=== PATIENT | female | born 1945 | race Caucasian/White ===

== ENCOUNTER 2018-06-05 13:15 | Outpatient (CLI) | payer MEDICARE ==
--- NOTE | 2018-06-05 15:18 | MRI ---
MRI CERVICAL SPINE NONCONTRAST: History: Neck pain without radiculopathy. FINDINGS: Vertebral body height and alignment are maintained. Desiccation of all of the intervertebral discs. B one marrow signal is within normal limits. Motion artifact obscures detail. C2-3: Central canal and neural foramina are patent. C3-4: Mild posterior osteophyte/disc complex. Mild right and moderate left foraminal stenoses. C4-5: Mild posterior osteophyte/disc complex. Circumferential degenerative changes. Moderate stenosis of the central canal. Moderate right and severe left foraminal stenoses. No abnormal signal is appar ent without the spinal cord. C5-6: Very limited due to patient motion. At least mild central canal stenosis. Moderate bilateral fo raminal stenoses. C6-7: Extensive motion artifact. Minimal degenerative retrolisthesis. Posterior osteophyte/disc compl ex. Moderate stenosis of the central canal. Mild to moderate stenosis of the neural foramina. C7-T1: Minimal degenerative spondylolisthesis. Central canal and neural foramina are patent. IMPRESSION: 1. Multilevel degenerative changes throughout the cervical spine, including central canal and foramin al stenoses as detailed above. POS: LEO
== END 2018-06-05 13:16 | disposition home or self-care (01) ==
LOC: SCSMRI 13:15
PROVIDERS: ATTEND Orthopaedic Surgery
DX: M47.892 Other spondylosis, cervical region (principal); M48.02 Spinal stenosis, cervical region; M99.81 Other biomechanical lesions of cervical region
CPT/HCPCS: 72141

== ENCOUNTER 2019-12-01 08:05 | Outpatient (CLI) | payer MEDICARE ==
[2019-12-01 15:33] LABS: #Eosinphils 0.2 thou/uL (0.0-0.7); #Lymphocytes 2.9 thou/uL (1.20-3.40); #Monocytes 0.9 thou/uL (0.11-0.59); #Neutrophils 8.2 thou/uL (1.40-6.50); %Basophils 0.4 % (0.0-1.0); %Eosinophils 1.3 % (0.0-10.0); %Lymphocytes 23.7 % (21.0-51.0); %Monocytes 7.3 % (0.0-10.0); %Neutrophils 67.3 % (42.0-75.0); Hemoglobin 13.8 g/dL (12.0-16.0); Mean Corpuscular HGB CONC 32.6 g/dL (32.0-36.0); Mean Corpuscular Hemoglobin 29.8 pg (27.0-31.0); Mean Corpuscular Volume 91.5 fL (78.0-98.0); Platelet Count 250 thou/uL (130-400); RBC Distribution Width 12.7 % (11.5-14.5); Red Blood Cell (RBC) Count 4.65 mill/uL (4.20-5.40); White Blood Cell (WBC) Count 12.2 thou/uL (4.8-10.8)
[2019-12-01 15:53] LABS: Anion Gap 16 mmol/L (10-20); BUN (Urea Nitrogen) 19 mg/dL (9.8-20.1); Calc. Creatinine Clearance 0 mL/min (70-130); Calcium 10.1 mg/dL (7.8-10.44); Carbon Dioxide 24 mmol/L (23-31); Chloride 102 mmol/L (98-107); Estimated GFR-MDRD 53; Glucose 92 mg/dL (83-110); Potassium 3.7 mmol/L (3.5-5.1); Sodium 138 mmol/L (136-145)
== END 2019-12-01 08:06 | disposition home or self-care (01) ==
LOC: LABBT 08:05
PROVIDERS: ATTEND Orthopaedic Surgery
DX: Z01.818 Encounter for other preprocedural examination (principal); M12.811 Other specific arthropathies, not elsewhere classified, right shoulder
CPT/HCPCS: 80048; 85025; 87081; 93005; 93010

== ENCOUNTER 2019-12-01 14:00 | Inpatient (IN) | payer MEDICARE ==
[2019-12-09] MEDS ORDERED: Vancomycin 1.5 GRAM/300 ML BAG 1.5 GM/300 ML BAG ONE (06:05)
[2019-12-09] MEDS ORDERED: Tranexamic Acid 1,000 MG/10 ML VIAL ONE (06:05)
[2019-12-09] MEDS ORDERED: Sodium Chloride 0.9% 100 ML ONE (06:05)
[2019-12-09] MEDS ORDERED: Fentanyl 100 MCG/2 ML VIAL ONE ×4 (06:46→10:02)
[2019-12-09] MEDS ORDERED: Midazolam HCl 2 mg/2 ml Vial ONE (06:46)
[2019-12-09] MEDS ORDERED: Acetaminophen 325 MG TAB PO PRN ×2 (06:49→07:15)
[2019-12-09] MEDS ORDERED: HYDROcodone/Acetaminophen 10/325 mg Tablet PO PRN ×3 (06:49→07:15)
[2019-12-09] MEDS ORDERED: traMADol HCl 50 MG TAB PO PRN ×4 (06:49→07:15)
[2019-12-09] MEDS ORDERED: Lorazepam 1 MG TAB PO PRN (06:50)
[2019-12-09] MEDS ORDERED: Acetaminophen ER (8hr) 650 MG TAB PO PRN (06:50)
[2019-12-09] MEDS ORDERED: Methocarbamol 500 MG TAB PO PRN (06:50)
[2019-12-09] MEDS ORDERED: Ondansetron PF 4 MG/2 ML Vial IVP PRN (07:15)
[2019-12-09] MEDS ORDERED: Ropivacaine 0.2% 550 ML 550 ML NERVE BLCK SCH (07:15)
[2019-12-09] MEDS ORDERED: Promethazine HCl 25 MG/ML VIAL IM PRN (07:15)
[2019-12-09] MEDS ORDERED: Zolpidem Tartrate 5 MG TAB PO PRN (07:15)
[2019-12-09] MEDS ORDERED: Fentanyl 100 MCG/2 ML VIAL SLOW IVP PRN (07:16)
[2019-12-09] MEDS ORDERED: Polyethylene Glycol OPTH DROP 15 ML BOT EA EYE PRN (07:41)
[2019-12-09] MEDS ORDERED: Ketorolac Tromethamine 30 MG/ML VIAL ONE (09:42)
[2019-12-09 12:56] VITALS: BMI 43.4
[2019-12-09] MEDS: Ketorolac Tromethamine 30 MG/ML VIAL IVP SCH ×2 (13:00→17:45)
[2019-12-09] MEDS: Lactated Ringer's 1,000 ML IV SCH ×2 (13:35→22:47)
[2019-12-09] MEDS: Famotidine 20 MG TAB PO SCH ×2 (13:35→20:06)
[2019-12-09] MEDS: Multivit, Therapeutic 1 TAB PO SCH (13:35)
[2019-12-09] MEDS: Vit A,C & E/Lutein/Minerals Tablet PO SCH ×2 (13:36→20:05)
[2019-12-09] MEDS: CEFAZOLIN 2 GM in Premix Bag 1 BAG IVPB SCH ×2 (14:05→22:47)
[2019-12-09] MEDS ORDERED: Rocuronium Bromide 10 MG/ML (10ML VIAL) ONE (14:45)
[2019-12-09] MEDS ORDERED: PROPOFOL 200 MG/20 ML VIAL ONE (14:45)
[2019-12-09] MEDS ORDERED: Ropivacaine 0.2% HCl/PF (40 MG/20 ML VIAL) ONE (14:45)
[2019-12-09] MEDS ORDERED: Ondansetron PF 4 MG/2 ML Vial ONE (14:45)
[2019-12-09] MEDS ORDERED: Lidocaine 1% PF 5 ML VIAL ONE (14:45)
[2019-12-09] MEDS ORDERED: Glycopyrrolate 0.2 MG/ML 5 ML SYRINGE ONE (14:45)
[2019-12-09] MEDS ORDERED: Ropivacaine 0.5% HCl/PF (150 MG/30 ML VIAL) ONE (14:45)
[2019-12-09] MEDS ORDERED: Dexamethasone 20 MG/5 ML VIAL ONE (14:45)
[2019-12-09] MEDS ORDERED: Vancomycin HCl 1 GM in Premix Bag 1 BAG IVPB SCH (18:00)
[2019-12-09] MEDS: Melatonin 3 MG TAB PO SCH (20:05)
[2019-12-09] MEDS: Atorvastatin Calcium 10 MG TAB PO SCH (20:05)
[2019-12-09] MEDS ORDERED: Aspirin 81 mg Enteric Coated Tablet PO SCH (21:00)
[2019-12-10] MEDS: Ketorolac Tromethamine 30 MG/ML VIAL IVP SCH ×5 (00:39→23:17)
[2019-12-10] MEDS ORDERED: Enoxaparin Sodium 40 MG/0.4 ML SYRINGE SC SCH (06:00)
[2019-12-10] MEDS: Famotidine 20 MG TAB PO SCH ×2 (08:15→20:22)
[2019-12-10] MEDS: Vit A,C & E/Lutein/Minerals Tablet PO SCH ×2 (08:15→20:22)
[2019-12-10] MEDS: Multivit, Therapeutic 1 TAB PO SCH (08:15)
[2019-12-10] MEDS: HYDROcodone/Acetaminophen 10/325 mg Tablet PO PRN ×3 (11:03→23:16)
--- NOTE | 2019-12-10 14:19 | RAD ---
XR Chest Pa Lat STANDARD HISTORY: Dyspnea COMPARISON: None FINDINGS: The heart size is mildly enlarged. The lungs are without focal areas of consolidation, pneu mothorax or pleural effusions. There is elevation the right hemidiaphragm. Postop changes of right shoulder arthroplasty are present. IMPRESSION: No radiographic evidence of acute cardiopulmonary process.
[2019-12-10] MEDS: Lactated Ringer's 1,000 ML IV SCH (14:33)
[2019-12-10] MEDS: Atorvastatin Calcium 10 MG TAB PO SCH (20:20)
[2019-12-10] MEDS: Melatonin 3 MG TAB PO SCH (20:22)
[2019-12-11] MEDS: HYDROcodone/Acetaminophen 10/325 mg Tablet PO PRN ×3 (03:05→12:58)
[2019-12-11] MEDS: Lactated Ringer's 1,000 ML IV SCH (06:16)
[2019-12-11] MEDS: Ketorolac Tromethamine 30 MG/ML VIAL IVP SCH (06:17)
[2019-12-11] MEDS: Multivit, Therapeutic 1 TAB PO SCH (08:29)
[2019-12-11] MEDS: Famotidine 20 MG TAB PO SCH (08:29)
[2019-12-11] MEDS: Vit A,C & E/Lutein/Minerals Tablet PO SCH ×2 (08:31→08:33)
[2019-12-11] MEDS ORDERED: Enoxaparin Sodium 40 MG/0.4 ML SYRINGE SC SCH (09:00)
[2019-12-11 11:17] VITALS: BP 93/58; TEMP 97.4
--- NOTE | 2019-12-14 10:13 | OP ---
DATE OF PROCEDURE: 12/09/2019 PREOPERATIVE DIAGNOSIS: Rotator cuff arthropathy, right shoulder. POSTOPERATIVE DIAGNOSIS: Rotator cuff arthropathy, right shoulder. PROCEDURE PERFORMED: Right reverse total shoulder arthroplasty. TRENCH DIGGER HELPER: Rob. BLOOD LOSS: Less than 200. SPECIMEN: None. DRAINS: None. COMPLICATION: None. IMPLANTS USED: [employer] implant 3B stem, standard metaphysis, 6 mm poly, 29 mm baseplate with standard glenosphere. DESCRIPTION OF PROCEDURE: The patient was taken to the operating room, where general anesthesia was induced. The patient was placed in a beach chair position. Right shoulder was prepped and draped in the usual sterile fashion. I made a standard deltopectoral approach. The subscapularis was taken down sharply off bone. The rotator cuff was completely deficient. Humeral head was dislocated without difficulty at the humeral neck in about 20 degrees of retroversion, prepared the humeral shaft with the appropriate trials and broaches, and a broach was left in place, guard for proximal humerus. The glenoid was exposed circumferentially. I removed all labral tissue, the superior aspect of the glenoid, I removed the biceps tendon, and released the subscapularis consistency. The glenoid was drilled centrally and reamed and incised the appropriate size baseplate. The baseplate was deployed. Compression screws were inserted in usual fashion followed by locking screws. The screw was deployed without difficulty. The implants were trialed. The appropriate implants were then reduced into place as noted in the body of the dictation. The subscapularis was repaired back to bone using Cottony Dacron suture after appropriate irrigation. The was performed again. The deltopectoral interval was closed with 0 Vicryl, subcutaneous tissue was closed with 2-0 Vicryl, skin was closed with myron. TRENCH DIGGER HELPER: Rob. BLOOD LOSS: Less than 200. Job ID: [id number]
== END 2019-12-11 13:32 | disposition home or self-care (01) | DRG 483 ==
LOC: SURG A 12-09 05:33
PROVIDERS: ADMIT Orthopaedic Surgery; ATTEND Orthopaedic Surgery
PROC: 0RRJ00Z Replacement of Right Shoulder Joint with Reverse Ball and Socket Synthetic Substitute, Open Approach (ICD-10-PCS; principal; 2019-12-09)
DX: M12.811 Other specific arthropathies, not elsewhere classified, right shoulder (principal); Z68.41 Body mass index [BMI] 40.0-44.9, adult; M75.122 Complete rotator cuff tear or rupture of left shoulder, not specified as traumatic; M47.812 Spondylosis without myelopathy or radiculopathy, cervical region; M47.816 Spondylosis without myelopathy or radiculopathy, lumbar region; K21.9 Gastro-esophageal reflux disease without esophagitis; F41.9 Anxiety disorder, unspecified; F32.9 Major depressive disorder, single episode, unspecified; I10 Essential (primary) hypertension; G47.00 Insomnia, unspecified; H35.30 Unspecified macular degeneration; Z96.653 Presence of artificial knee joint, bilateral; Z96.643 Presence of artificial hip joint, bilateral; E66.01 Morbid (severe) obesity due to excess calories; Z79.899 Other long term (current) drug therapy; Z79.82 Long term (current) use of aspirin; Z79.1 Long term (current) use of non-steroidal anti-inflammatories (NSAID); Z90.49 Acquired absence of other specified parts of digestive tract; Z87.891 Personal history of nicotine dependence
CPT/HCPCS: 71046; A4306; C1713; J0690; J1100; J1650; J1885; J2001; J2250; J2405; J2704; J2795; J3010; J3370; J3490

== ENCOUNTER 2019-12-27 08:59 | Outpatient (CLI) | payer MEDICARE ==
--- NOTE | 2019-12-27 09:37 | RAD ---
EXAM: Chest 2 views: HISTORY: Cough and congestion COMPARISON: 12/10/2019 FINDINGS: Total right shoulder replacement changes. Heart size:Within normal limits. Lungs:Clear of acute process. Atherosclerotic changes of the aorta. No confluent pneumonia, overt edema, pleural effusion, pneumothorax, or other significant acute proce ss. IMPRESSION: Stable exam. Marked atherosclerotic ectatic changes of the aorta No acute intrathoracic disease.
== END 2019-12-27 09:00 | disposition home or self-care (01) ==
LOC: SCSRAD 08:59
PROVIDERS: ATTEND Family Medicine
DX: R05 Cough (principal); I70.0 Atherosclerosis of aorta; I77.819 Aortic ectasia, unspecified site
CPT/HCPCS: 71046

== ENCOUNTER 2021-10-04 09:08 | Outpatient (CLI) | payer MEDICARE | END 2021-10-04 09:09 | disposition home or self-care (01) | LOC: TBSIIMAG 09:08 | PROVIDERS: ATTEND Family Medicine | DX: M48.061 Spinal stenosis, lumbar region without neurogenic claudication (principal); M47.817 Spondylosis without myelopathy or radiculopathy, lumbosacral region; M51.36 Other intervertebral disc degeneration, lumbar region; M47.816 Spondylosis without myelopathy or radiculopathy, lumbar region; M43.16 Spondylolisthesis, lumbar region; M71.38 Other bursal cyst, other site | CPT/HCPCS: 72148 ==

== ENCOUNTER 2021-12-14 10:22 | Outpatient (CLI) | payer MEDICARE | END 2021-12-14 10:23 | disposition home or self-care (01) | LOC: SCSCT 10:22 | DX: M43.17 Spondylolisthesis, lumbosacral region (principal); M99.23 Subluxation stenosis of neural canal of lumbar region; M47.816 Spondylosis without myelopathy or radiculopathy, lumbar region | CPT/HCPCS: 72131 ==

== ENCOUNTER 2022-03-27 11:59 | Outpatient (CLI) | payer MEDICARE | END 2022-03-27 12:00 | disposition home or self-care (01) | LOC: SCSRAD 11:59 | PROVIDERS: ATTEND Family Medicine | DX: Z47.89 Encounter for other orthopedic aftercare (principal); M47.816 Spondylosis without myelopathy or radiculopathy, lumbar region; Z98.890 Other specified postprocedural states | CPT/HCPCS: 72100 ==

== ENCOUNTER 2022-05-20 10:55 | Outpatient (CLI) | payer MEDICARE | END 2022-05-20 10:56 | disposition home or self-care (01) | LOC: SCSRAD 10:55 | PROVIDERS: ATTEND Family Medicine | DX: M54.50 Low back pain, unspecified (principal); Z98.890 Other specified postprocedural states | CPT/HCPCS: 72100 ==

== ENCOUNTER 2023-08-04 12:44 | Outpatient (CLI) | payer MEDICARE ==
[2023-08-04 14:35] LABS: #Basophils 0.1 10x3/uL (0.0-0.2); #Eosinphils 0.1 10x3/uL (0.0-0.5); #Monocytes 0.6 10x3/uL (0.0-1.1); #Neutrophils 4.1 10x3/uL (1.5-8.4); %Basophils 0.7 % (0.0-2.0); %Eosinophils 1.9 % (0.0-6.0); %Lymphocytes 31.4 % (18.0-47.0); %Neutrophils 57.9 % (40.0-75.0); Hematocrit 43.1 % (34.9-44.5); Hemoglobin 13.7 g/dL (12.0-15.5); Mean Corpuscular HGB CONC 31.8 g/dL (32.0-36.0); Mean Corpuscular Hemoglobin 29.7 pg (27.0-33.0); Mean Corpuscular Volume 93.5 fl (81.6-98.3); Platelet Count 200 10x3/uL (150-450); RBC Distribution Width 14.3 % (11.5-14.5); Red Blood Cell (RBC) Count 4.61 10x6/uL (3.90-5.03)
[2023-08-04 14:42] LABS: ALT (SGPT) 16 U/L (8-55); AST (SGOT) 18 U/L (5-34); Albumin 4.6 g/dL (3.4-4.8); Alkaline Phosphatase 81 U/L (40-110); Anion Gap 18 mmol/L (10-20); BUN (Urea Nitrogen) 14 mg/dL (9.8-20.1); Bilirubin, Total 0.7 mg/dL (0.2-1.2); Calc. Creatinine Clearance 0 mL/min (70-130); Calcium 9.4 mg/dL (7.8-10.44); Carbon Dioxide 24 mmol/L (23-31); Chloride 107 mmol/L (98-107); Estimated GFR 83; Globulin 2.7 g/dL (2.4-3.5); Glucose 102 mg/dL (83-110); Protein, Total 7.3 g/dL (5.8-8.1); Sodium 145 mmol/L (136-145)
== END 2023-08-04 12:45 | disposition home or self-care (01) ==
LOC: LABBT 12:44
PROVIDERS: ATTEND Surgery
DX: Z01.818 Encounter for other preprocedural examination (principal); K43.2 Incisional hernia without obstruction or gangrene
CPT/HCPCS: 80053; 85025; 93005; 93010

== ENCOUNTER 2023-08-15 07:50 | Day surgery (SDC) | payer MEDICARE ==
[2023-08-04 13:28] VITALS: BMI 42.9
[2023-08-15] MEDS ORDERED: CEFAZOLIN 2 GM VIAL ONE (09:04)
[2023-08-15] MEDS ORDERED: Sodium Chloride 0.9% 100 ML ONE (09:04)
[2023-08-15] MEDS ORDERED: fentaNYL PF 100 MCG/2 ML SYRINGE ONE (09:14)
[2023-08-15] MEDS ORDERED: EPINEPHrine 1 MG/ML AMP ONE (09:20)
[2023-08-15] MEDS ORDERED: Bupivacaine PF 0.5% 30 ML VIAL ONE (09:20)
[2023-08-15] MEDS ORDERED: Rocuronium Bromide 10 MG/ML (10ML VIAL) ONE (09:39)
[2023-08-15] MEDS ORDERED: Dexamethasone 20 MG/5 ML VIAL ONE (09:39)
[2023-08-15] MEDS ORDERED: PROPOFOL 200 MG/20 ML VIAL ONE (09:39)
[2023-08-15] MEDS ORDERED: Glycopyrrolate 0.2 MG/ML 5 ML SYRINGE ONE (09:39)
[2023-08-15] MEDS ORDERED: Lidocaine 1% PF 5 ML VIAL ONE (09:39)
[2023-08-15] MEDS ORDERED: Ondansetron PF 4 MG/2 ML Vial ONE (09:39)
[2023-08-15] MEDS ORDERED: NEOSTIGMINE 3 MG/3 ML SYR 3 MG/3 ML SYRINGE ONE (09:39)
[2023-08-15] MEDS ORDERED: HYDROmorphone 0.5 MG/0.5 ML SYRINGE ONE ×2 (10:34→10:45)
[2023-08-15] MEDS ORDERED: Fentanyl 250 MCG/5 ML VIAL ONE (10:34)
[2023-08-15] MEDS ORDERED: Ondansetron ODT 4 MG TAB ONE (12:59)
== END 2023-08-15 14:00 | disposition home or self-care (01) ==
LOC: SDC 07:50
PROVIDERS: ATTEND Surgery
PROC: 0WUF0JZ Supplement Abdominal Wall with Synthetic Substitute, Open Approach (ICD-10-PCS; principal; 2023-08-15)
DX: K42.9 Umbilical hernia without obstruction or gangrene (principal); K43.2 Incisional hernia without obstruction or gangrene; E11.9 Type 2 diabetes mellitus without complications; E78.5 Hyperlipidemia, unspecified; I10 Essential (primary) hypertension; K21.9 Gastro-esophageal reflux disease without esophagitis; Z87.891 Personal history of nicotine dependence; Z79.899 Other long term (current) drug therapy; Z88.5 Allergy status to narcotic agent
CPT/HCPCS: 49593; C1781; J0171; J1100; J1170; J2405; J2704; J3010; J3490; Q0162; S0020

== ENCOUNTER 2024-03-24 12:42 | Outpatient (CLI) | payer MEDICARE ==
[2024-03-24 14:11] LABS: #Basophils 0.07 10x3/uL (0.0-0.2); #Eosinphils 0.15 10x3/uL (0.0-0.5); #Monocytes 0.63 10x3/uL (0.0-1.1); #Neutrophils 5.18 10x3/uL (1.5-8.4); %Basophils 0.8 % (0.0-2.0); %Eosinophils 1.8 % (0.0-6.0); %Lymphocytes 27.8 % (18.0-47.0); %Monocytes 7.5 % (0.0-10.0); %Neutrophils 61.7 % (40.0-75.0); Hematocrit 43.7 % (34.9-44.5); Hemoglobin 14.1 g/dL (12.0-15.5); Mean Corpuscular HGB CONC 32.3 g/dL (32.0-36.0); Mean Corpuscular Hemoglobin 30.8 pg (27.0-33.0); Mean Corpuscular Volume 95.4 fl (81.6-98.3); Mean Platelet Volume 11.6 fl (7.4-10.4); Platelet Count 220 10x3/uL (150-450); RBC Distribution Width 14.1 % (11.5-14.5); Red Blood Cell (RBC) Count 4.58 10x6/uL (3.90-5.03); White Blood Cell (WBC) Count 8.4 10x3/uL (3.5-10.5)
== END 2024-03-24 12:43 | disposition home or self-care (01) ==
LOC: LABBT 12:42
PROVIDERS: ATTEND Orthopaedic Surgery Hand Surgery
DX: Z01.818 Encounter for other preprocedural examination (principal); M18.0 Bilateral primary osteoarthritis of first carpometacarpal joints
CPT/HCPCS: 85025; 93005; 93010

== ENCOUNTER 2024-04-02 05:52 | Inpatient (IN) | payer MEDICARE ==
[2024-03-24 13:35] VITALS: BMI 25.7
[2024-04-02] MEDS ORDERED: fentaNYL PF 100 MCG/2 ML SYRINGE ONE (07:12)
[2024-04-02] MEDS ORDERED: PROPOFOL 20 ML ONE (07:12)
[2024-04-02] MEDS ORDERED: Lidocaine 1% PF 5 ML VIAL ONE (07:12)
[2024-04-02] MEDS ORDERED: Ondansetron PF 4 MG/2 ML Vial ONE (07:12)
[2024-04-02] MEDS ORDERED: Dexamethasone 20 MG/5 ML VIAL ONE (07:12)
[2024-04-02] MEDS ORDERED: fentaNYL 50 mcg/mL 1 mL Vial ONE (07:16)
[2024-04-02] MEDS ORDERED: Midazolam HCl 2 mg/2 ml Vial ONE (07:17)
[2024-04-02] MEDS ORDERED: Bupivacaine HCl 0.5%/Epinephrine 1:200,000/PF 30 ml Vial ONE (07:20)
[2024-04-02] MEDS ORDERED: CEFAZOLIN 2 GM VIAL ONE (07:24)
[2024-04-02] MEDS ORDERED: Sodium Chloride 0.9% 100 ML ONE (07:24)
[2024-04-02] MEDS ORDERED: PHENYLEPHRINE-NS 100 MCG/ML 10 ML SYRINGE ONE (08:13)
[2024-04-02] MEDS ORDERED: ePHEDrine Sulfate 50 MG/10 ML VIAL ONE (08:50)
[2024-04-02] MEDS ORDERED: Bacitracin Zinc Ointment 30 gm TUBE ONE (09:09)
[2024-04-02] MEDS ORDERED: Ondansetron PF 4 MG/2 ML Vial IVP PRN (13:47)
[2024-04-02] MEDS ORDERED: Bisacodyl 10 MG SUPP PR PRN (13:47)
[2024-04-02] MEDS ORDERED: fentaNYL 50 mcg/mL 1 mL Vial SLOW IVP PRN (13:47)
[2024-04-02] MEDS ORDERED: traMADol HCl 50 MG TAB PO PRN (13:47)
[2024-04-02] MEDS ORDERED: Communication Order-Pharmacy FS SCH (14:00)
[2024-04-02] MEDS ORDERED: Acetaminophen 325 MG TAB PO PRN (14:11)
[2024-04-02] MEDS ORDERED: HYDROcodone/Acetaminophen 5/325 mg Tablet PO PRN ×2 (14:11→14:12)
[2024-04-02] MEDS ORDERED: Acetaminophen 325 MG TAB ONE (14:14)
[2024-04-02] MEDS ORDERED: Ondansetron ODT 4 MG TAB PO PRN (14:15)
[2024-04-02] MEDS ORDERED: Artificial Tear Sol 15 ML BOT EA EYE PRN (14:16)
[2024-04-02] MEDS ORDERED: Naproxen 500 MG TAB PO PRN (14:20)
[2024-04-02] MEDS: TETANUS, DIPHTHERIA TOX,ADULT (TDVAX) 0.5 ML VIAL IM ONE (15:57)
[2024-04-02] MEDS: HYDROcodone/Acetaminophen 5/325 mg Tablet PO PRN (18:13)
[2024-04-02] MEDS: Docusate 100 MG CAP PO SCH (20:31)
[2024-04-02] MEDS: Losartan 25 MG TAB PO SCH (20:31)
[2024-04-02] MEDS: Aspirin 81 mg Enteric Coated Tablet PO SCH (20:31)
[2024-04-03 05:05] VITALS: TEMP 97.8
[2024-04-03 07:59] VITALS: BP 111/69
[2024-04-03] MEDS: Cholecalciferol 1,000 UNITS (25 MCG) TAB PO SCH (10:24)
[2024-04-03] MEDS: Vit A,C & E/Lutein/Minerals Tablet PO SCH (10:25)
[2024-04-03] MEDS: Pantoprazole DR 40 MG TAB PO SCH (10:25)
[2024-04-03] MEDS: Rosuvastatin 20 MG TAB PO SCH (10:25)
== END 2024-04-03 14:13 | disposition home or self-care (01) | DRG 506 ==
LOC: SDC 05:52 → SJJU 15:47
PROVIDERS: ADMIT Orthopaedic Surgery Hand Surgery; ATTEND Orthopaedic Surgery Hand Surgery
PROC: 0RRS0JZ Replacement of Right Carpometacarpal Joint with Synthetic Substitute, Open Approach (ICD-10-PCS; principal; 2024-04-02)
PROC: 0PTM0ZZ Resection of Right Carpal, Open Approach (ICD-10-PCS; 2024-04-02)
DX: M19.041 Primary osteoarthritis, right hand (principal); Z68.41 Body mass index [BMI] 40.0-44.9, adult; Z96.641 Presence of right artificial hip joint; Z96.651 Presence of right artificial knee joint; I10 Essential (primary) hypertension; E78.5 Hyperlipidemia, unspecified; M43.16 Spondylolisthesis, lumbar region; F32.A Depression, unspecified; K21.9 Gastro-esophageal reflux disease without esophagitis; Z96.653 Presence of artificial knee joint, bilateral; E66.01 Morbid (severe) obesity due to excess calories; M19.90 Unspecified osteoarthritis, unspecified site; Z87.891 Personal history of nicotine dependence; Z90.710 Acquired absence of both cervix and uterus
CPT/HCPCS: C1713; C1894; J1100; J2250; J2405; J2704; J3010; J3490